=== PATIENT | female | born 1980 | race Caucasian/White ===

== ENCOUNTER 2018-07-30 12:36 | Emergency (ER) | payer OTHER ==
[~2018-07-30] VITALS: Ht 162.6 cm; Wt 68.3 kg
[2018-07-30 12:41] VITALS: BP 109/65; PULSE 83; RESP 18; Ht 162.6 cm; Wt 68.3 kg
--- NOTE | 2018-07-30 14:46 | ERD ---
ER Documentation Chief Complaint Chief Complaint pt is bib family with c/o squirrel bite to left index finger 30 min ago HPI Right-hand dominant 38-year-old female presents after being bit by a score on her left second finger. She is unsure of her last tetanus vaccination but she does not want one and declines one. No fever. No loss of range of motion. No numbness or tingling. ROS All systems reviewed and are negative except as per history of present illness. Allergies Allergies: Coded Allergies: No Known Allergy (Unverified , 07/30/18) FmHx Family History: No diabetes Physical Exam Vitals Vital Signs Date Temp Pulse Resp B/P (MAP) Pulse Ox O2 O2 Flow FiO2 Time Delivery Rate 07/30/18 97.9 83 18 109/65 99 12:41 (80) Physical Exam Const: No acute distress Head: Atraumatic Eyes: Normal Conjunctiva ENT: Normal External Ears, Nose and Mouth. Neck: Full range of motion. No meningismus. Resp: Clear to auscultation bilaterally Cardio: Regular rate and rhythm, no murmurs Hand - bilateral: Skin: Small irregularly shaped superficial laceration at PIP joint, is not open or gaping, no bleeding or drainage Compartments: Soft Sensation: Intact shoulder/pinky/middle finger/thumb web space Bones: Nontender Snuffbox: Nontender Joints: No effusion Wrist: Flex/Ext: Normal Uln/Radial deviation: Normal Pron/Supination Normal Finger: Flex/Ext: Normal Add/abd: Normal Thumb: Flex/Ext: Normal Opposition: Normal Thumbs up: Normal Procedures/MDM Patient presents after squirrel bite. I explained to her that this is not a risk for rabies recommended tetanus vaccination. She declined tetanus vaccination. Wound care was initiated. Her wound was cleaned and irrigated. Steri-Strips applied. Placed in a metal finger splint for comfort and prescription for Augmentin given. Patient counseled regarding my diagnostic impression and care plan. Prior to discharge all questions answered. Pt agrees with treatment plan and understands strict return precautions. Pt is instructed to follow up with primary care provider within 24-48 hours. Precautionary instructions provided including instructions to return to the ER if not improving or for any worsening or changing symptoms or concerns. Departure Diagnosis: Primary Impression: Bite wound Condition: Stable BRAYDEN VELAZCO PA-C Jul 30, 2018 14:46
[2018-07-30] MEDS ORDERED: AMOX1TAB10 PO (14:47)
== END 2018-07-30 15:18 | disposition home or self-care (01) ==
LOC: FTE 12:36
DX: S61.251A Open bite of left index finger without damage to nail, initial encounter (principal); W53.21XA Bitten by squirrel, initial encounter; Y92.9 Unspecified place or not applicable
CPT/HCPCS: 29130; Z7502